=== PATIENT | male | born 1965 | race Caucasian/White ===

== ENCOUNTER → 2018-02-01 | Day surgery (SDC) | payer OTHER ==
[~2018-02-01] VITALS: Ht 172.7 cm; Wt 79.8 kg
[~2018-02-01] MED LIST: VALIUM5 M2 PO
--- NOTE | 2018-02-01 17:39 | Operative Report ---
Operative/Inv Procedure Report Surgery Date: 02/01/18 Name of Procedure: Robotic left neurectomy of the genital branch of the genital femoral nerve Pre-Operative Diagnosis: Chronic left groin pain Post-Operative Diagnosis: Same Estimated Blood Loss: none Surgeon/Hosiery Mater: Blair SHAHID,Khari Weathers PA-C Anesthesia: general endotracheal tube, block IV Fluids: 1 L crystalloid Implants: None Drains: None Specimens: Portion of genital branch of genitofemoral nerve confirmed on frozen section as nerve tissue Complications: None Condition: Excellent Operative Indication: Liu is a 52-year-old gentleman suffered from left groin pain for several years now and seemingly exacerbated by a laparoscopic repair early on. Since that time he has had a left ilioinguinal neurectomy and partial max mesh explantation by Dr. Mars Vega and a left abductor tenotomy by myself. He has persisting complaints of pain at the pubic tubercle which has transiently been blocked by trigger point injection only for a few days. The pattern is suspicious for entrapment of the genital branch of the genitofemoral nerve and so he presents for neurectomy of this and possible mesh explant if feasible and necessary. Operative/Procedure Note Note: The patient is taken to the operating room and placed on the operating table in the supine position. He had been marked in the preop holding area as to the left side being correct. Following an awake timeout he underwent an uneventful induction of general endotracheal anesthesia, had a tap block performed by anesthesia, then had the abdomen clipped widely of hair prepped with DuraPrep and draped in usual sterile fashion including Ioban. Arms had been tucked by his side. He received Kefzol IV prior to skin incision and had Venodyne boots in place. Now local anesthetic was infiltrated in the supraumbilical area where a curvilinear incision was made and carried down to the fascia. The fascia was opened vertically for short distance to expose the preperitoneal fat and peritoneum which were elevated and incised to gain entry safely into the peritoneal cavity. Finger sweep revealed there were no adhesions. Stay sutures were placed and a 12 mm aerocele Elam port placed. Pneumoperitoneum was achieved and 30 da Justen xi scope placed. We aligned our ports in the diagonal targeting the left ASIS area. The right lower quadrant port was placed first after infiltrating local anesthetic. This was an 8 mm port. Placing the camera now here we could see there were adhesions at his prior appendectomy extraction site scar on the left side. These were taken down with the hook cautery and then the 2 other 8 mm ports placed one subcostally and the other half way to the midline. Patient was placed in 20 Trendelenburg rolled slightly to the left. He had had a bump of a rolled bath blanket placed behind him preop as well. The robot was then docked and a cadiere placed in the left most port, a fenestrated bipolar in the middle left and a monopolar dao in the right. I began by taking down some adhesions of the pericolonic fat and epiploic that were adherent to the area of the mesh and the internal ring and this allowed for the sigmoid colon to be rolled away from the area exposing the retroperitoneum. I could see the cord structures very well exiting behind the mesh. The mesh was high and there was only a small portion of mesh lateral, most of it being medial and disappearing behind the lateral umbilical and media medial umbilical ligaments which were fatty. In the retroperitoneum I could see the psoas muscle and cleared away a small bit of fat to easily identify the genitofemoral nerve. On could see the nerve branching with a smaller branch going lateral to the abdominal wall in one could follow it curving back behind the mesh joining the cord. I was able to lift the cord and see behind it and so there was only the fat covering iliac vessels and I did not see any evidence of any other nerve joining the cord. Larger branch went straight down towards the iliac artery and I dissected area and given a slight tug to 6 to prove that it was disappearing out the femoral sheath with the artery and not going up to the cord. This proved to me this was the femoral branch. I dissected out a short segment of the genital branch and then divided with this scissors and careful not to manipulate or damage the proximal portion I left a short segment proximally free that could dunk into the lying psoas muscle right made a small split. From the distal piece I took a specimen for pathology and this returned as consistent with peripheral nerve tissue. I contemplated mesh removal but this seemed rather dangerous and since we had identified the nerve rather readily and confidently I decided to forego any attempts at mesh explant. Began taking the patient out of the roll in Trendelenburg position so that the pericolonic fat and sigmoid colon was over the area of open retroperitoneum. It was not amenable to any suture closure. The robot was undocked and the ports removed under direct vision. Fascia at the umbilicus was closed with 2 [id number] sutures of 0 Vicryl. The subcutaneous tissue was reapproximated with interrupted 3-0 Vicryl suture and skin closed with 4-0 Monocryl subcuticular running suture. Steri-Strips 4 x 4's and OpSite were placed. My tolerated the procedure well was taken to the recovery room in satisfactory condition extubated all sponge needle entry count confirmed correct 2 at the completion of the case. There was no pneumo scrotum or any subcutaneous air. Findings: Mesh over cord and medial structures. Genitofemoral nerve identified with genital branch branching laterally before coming up onto the abdominal wall and disappearing behind mesh. Medial branch was the femoral branch exiting with the femoral artery into the femoral sheath. This was preserved Discharge Disposition: PACU
== END ==
LOC: EDBD 02:38 → STS 02:38
DX: R10.32 Left lower quadrant pain (principal); K66.0 Peritoneal adhesions (postprocedural) (postinfection); R01.1 Cardiac murmur, unspecified; F17.200 Nicotine dependence, unspecified, uncomplicated
CPT/HCPCS: 88302; 88331; C9290; J0131; J0690; J2250; J3490